=== PATIENT | female | born 1945 | race Caucasian/White ===

== ENCOUNTER 2019-06-22 12:34 | Emergency (ER) | payer MEDICARE, BC, SELFPAY ==
--- NOTE | ~2019-06-22 | XR_ITS ---
EXAMINATION: XR knee RT min 4V EXAM DATE: 06/22/2019 13:09 INDICATION: Initial encounter following injury, with pain of the right knee. TECHNIQUE: Right knee frontal, crosstable lateral, orthogonal oblique projections for interpretation . Additional sunrise projection. FINDINGS: Probable sizable suprapatellar joint body. There is moderate to severe patellofemoral and moderate medial tibiofemoral compartment primary osteoarthritis. There are no acute right knee fractu res or dislocations identified. There is no subcutaneous gas. The soft tissue is unremarkable. Th ere are no radiopaque foreign bodies. IMPRESSION: 1. XR knee RT min 4V exam without acute osseous findings. 2. Moderate to severe osteoarthritis. Reviewed, dictated and finalized at location A. ER DEVELOPMENT DIRECTOR
--- NOTE | ~2019-06-22 | XR_ITS ---
EXAMINATION: XR knee LT min 4V EXAM DATE: 06/22/2019 13:09 INDICATION: Trauma, left knee replacement, pain, initial encounter. TECHNIQUE: Left knee frontal, crosstable lateral, orthogonal oblique projections for interpretation. Additional sunrise projection. FINDINGS: There is total left knee arthroplasty, hardware is intact. No acute fracture line is identi fied. Probable joint bodies within the suprapatellar recess, with small effusion. No acute findings s uspected. IMPRESSION: Intact left knee arthroplasty. Reviewed, dictated and finalized at location A. GER OF ORGANIZATIONAL DEVELOPMENT
--- NOTE | 2019-06-22 12:56 | ED.GENADULT ---
HPI - General Adult General Chief complaint: Extremity Injury, Lower Stated complaint: both knee Time Seen by Provider: 06/22/19 12:56 Source: patient and RN notes reviewed Limitations: no limitations History of Present Illness HPI narrative: This is a 74 years old female presented office for an evaluation of knees injury. States, she tripped over a bump on the group and landed first on her right knee and then left knee, hands and body faceforward on ground. Denies head injury/trauma. Denies chest pain or dyspnea. Reports right knee pain with numbness/tingling sensation around the knee cap. Admits to history of left knee replacement three years ago. She has tried ice and Advil for her symptoms. Related Data Home Medications Medication Instructions Recorded Confirmed amlodipine-benazepril 1 cap BID 06/22/19 06/22/19 omeprazole 40 mg DAILY 06/22/19 06/22/19 Allergies Allergy/AdvReac Type Severity Reaction Status Date / Time No Known Allergies Allergy Verified 06/22/19 12:36 Review of Systems Review of Systems: Narrative: CONSTITUTIONAL: Denies feeling ill CARDIOVASCULAR: Denies chest pain RESPIRATORY: Denies dyspnea GASTROINTESTINAL: Denies nausea, vomiting GENITOURINARY: Denies urinary/bowel problem SKIN: Denies bruise/skin abrasion MUSCULOSKELETAL: Reports bilateral knees pain without obvious bruising NEUROLOGIC: Denies lightheaded or dizziness prior to accident. PMFSH Past Medical History Medical History (Updated 06/22/19 @ 15:27 by ROIB Das) GERD (gastroesophageal reflux disease) HLD (hyperlipidemia) HTN (hypertension) Surgical History Surgical History (Updated 06/22/19 @ 12:57 by ROBI Das) History of left knee replacement Social History Social History Gender identity (if verbalized by the patient): Female Comments At time of signature, I agree with nursing past medical, surgical, social and family history. There is no relevant family history pertinent to the presenting complaint. Exam Narrative: Exam Narrative: GENERAL: This is a well-nourished, well-developed patient, in no apparent distress. CARDIOVASCULAR: Regular rate and rhythm without murmurs, gallops, or rubs. RESPIRATORY: Clear to auscultation. Breath sounds equal bilaterally. No wheezes, rales, or rhonchi. NEURO: awake, alert, and oriented to person, place and time. There were no obvious focal neurologic abnormalities. Steady gait with walker EXTREMITIES: Patient is able to bear weight and ambulate slight pain. Left knee noted old heal surgical scar; no tenderness to palpation/tenderness. The R knee is without obvious asymmetry or deformity when comparing to the L. Patient is able fully extended knee; however there is tenderness over patella with palpation. Nontender over the infrapatellar tendon. Nontender over the medial or lateral joint line, or medial or lateral tibial plateaus. Nontender over the proximal fibular head. NO quadriceps tenderness. Distal motor and neurovascular status intact. Tran Coma Scale Eye Opening: Spontaneous 4 Tran Coma Scale Motor: Obeys Commands 6 Tran Coma Scale Verbal: Oriented 5 Course Vital Signs Vital signs: Vital Signs Temperature 99.0 F 06/22/19 13:05 Pulse Rate 65 06/22/19 13:05 Respiratory Rate 20 06/22/19 13:05 Blood Pressure 150/70 H 06/22/19 13:05 Pulse Oximetry 97 06/22/19 13:05 Temperature 99.0 F 06/22/19 13:05 Pulse Rate 65 06/22/19 13:05 Respiratory Rate 20 06/22/19 13:05 Blood Pressure 150/70 H 06/22/19 13:05 Pulse Oximetry 97 06/22/19 13:05 Medical Decision Making MDM Narrative Medical decision making narrative: Discharge instructions reviewed with patient, as well as provided in writing per nursing staff. The instructions also include specific and strict return/GO TO THE ER as well as f/u information. All questions have been answered, and the patient
[2019-06-22 13:05] VITALS: BP 150/70; PULSE 65; RESP 20; TEMP 37.2; O2SAT 97
== END 2019-06-22 13:35 | disposition home or self-care (01) ==
PROVIDERS: Emergency Provider Nurse Practitioner; PCP Internal Medicine
DX: S89.92XA Unspecified injury of left lower leg, initial encounter (principal); W18.09XA Striking against other object with subsequent fall, initial encounter; S89.91XA Unspecified injury of right lower leg, initial encounter; M17.11 Unilateral primary osteoarthritis, right knee; I10 Essential (primary) hypertension; Z96.642 Presence of left artificial hip joint; K21.9 Gastro-esophageal reflux disease without esophagitis; E78.5 Hyperlipidemia, unspecified
CPT/HCPCS: 73564; 99204; G0463

== ENCOUNTER 2019-09-19 13:33 | Outpatient (CLI) | payer MEDICARE, SELFPAY ==
--- NOTE | 2019-09-19 | ECHO_ITS ---
Patient Info Name: Gina Ortez Age: 74 years : 1945 Gender: Female Ht: 67 in Wt: 270 lbs BSA: 2.47 m2 HR: 50 bpm BP: 146 / 78 mmHg Technical Quality: Fair Exam Date: 09/19/2019 2:06 PM Exam Location: [facility] Patient Status: Outpatient Admit Date: 09/19/2019 Staff Ordering Physician: Corbin, Jaiden Silvestre MD Cotton Grader: Angelika Johnson RDCS Attending Provider: Corbin, Jaiden Silvestre MD Referring Physician: Corbin HOLLIS; Exam Type: CA echo doppler color flow Study Info Indications R01.1 - Cardiac murmur, unspecified Complete two-dimensional, color flow and Doppler transthoracic echocardiogram is performed. Summary 1. Left ventricular chamber dimension is mildly enlarged. 2. Left ventricular systolic function is normal, estimated at 50-55%. 3. There is mild asymmetric septal increased left ventricular wall thickness. 4. Left ventricular septal wall motion is abnormal with septal motion related to bundle branch block. 5. The left ventricular diastolic function is grade I diastolic dysfunction. 6. E/e' 15 is elevated. 7. Global longitudinal strain is abnormal at -12.8%. 8. Left atrial chamber dimension is moderately enlarged. 9. There is moderate aortic valve sclerosis. 10. Discrete calcification of mitral valve papillary muscle noted. 11. There is mild mitral valve regurgitation. 12. There is trace tricuspid valve regurgitation. 13. No pulmonary hypertension, estimated pulmonary arterial systolic pressure is 26 mmHg. Left Ventricle E/e' 15 is elevated. Global longitudinal strain is abnormal at -12.8%. Left ventricular chamber dimension is mildly enlarged. Left ventricular systolic function is normal, estimated at 50-55%. There is mild asymmetric septal increased left ventricular wall thickness. Left ventricular septal wall motion is abnormal with septal motion related to bundle branch block. The left ventricular diastolic function is grade I diastolic dysfunction. Right Ventricle Right ventricular chamber dimension is normal. Right ventricular systolic function is normal. Left Atria Left atrial chamber dimension is moderately enlarged. Right Atria Right atrial chamber dimension is normal. Aortic Valve The aortic valve is trileaflet. There is moderate aortic valve sclerosis. There is no aortic valve stenosis. There is no aortic valve regurgitation. Pulmonic Valve There is no pulmonic regurgitation. Mitral Valve Discrete calcification of mitral valve papillary muscle noted. There is no mitral valve stenosis. There is mild mitral valve regurgitation. Tricuspid Valve There is trace tricuspid valve regurgitation. No pulmonary hypertension, estimated pulmonary arterial systolic pressure is 26 mmHg. Pericardium/Pleural There is no pericardial effusion. Inferior Vena Cava Normal inferior vena cava with >50% collapse upon inspiration consistent with normal right atrial pressure, 5 mmHg. Aorta The aortic root size at the sinus of Valsalva is normal. Left Ventricular Outflow Tract Name Value Normal LVOT 2D LVOT Diameter 1.9 cm LVOT Doppler LVOT Peak Gradient
== END 2019-09-19 13:34 | disposition home or self-care (01) ==
LOC: ANHCARD 13:35
PROVIDERS: PCP Internal Medicine; Visit Provider Internal Medicine
DX: R01.1 Cardiac murmur, unspecified (principal); I51.7 Cardiomegaly; I35.8 Other nonrheumatic aortic valve disorders
CPT/HCPCS: 93306

== ENCOUNTER 2022-05-20 23:00 | Emergency (ER) | payer MEDICARE, SELFPAY ==
--- NOTE | ~2022-05-20 | XR_ITS ---
2 views of the right clavicle CLINICAL HISTORY: Deformity, trauma FINDINGS: Oblique fracture of the proximal clavicle near the fibular head is poorly delineated on rad iograph is compared to separately reported CT scan. There is mild degenerative change at the AC joint . Glenohumeral joint appears intact. Soft tissues are unremarkable. IMPRESSION: Poor delineation of oblique fracture of the proximal clavicle as compared to separately reported CT s can. Reviewed, dictated and finalized at location M. RMATION SYSTEMS PLANNER IMPRESSION: Poor delineation of oblique fracture of the proximal clavicle as compared to se parately reported CT scan.
--- NOTE | ~2022-05-20 | CT_ITS ---
CT Scan of the Chest without Contrast: Clinical Indication: Clavicular deformity Technique: Contiguous sections were acquired throughout the chest without intravenous contrast. Dose reduction technique was used on this scan by utilizing automated exposure control and iterative recon struction technique. The dose-length product (DLP) was 949.79 mGy-cm. Findings: There is no evidence of any significant mediastinal, hilar or axillary lymphadenopathy. Calcified med iastinal and right hilar lymph nodes are noted. Extensive coronary artery calcifications are present. No aortic aneurysm. Small hiatal hernia present. There is no evidence of pleural or pericardial effusion. The lungs demonstrate linear bibasilar scarring or atelectasis. Calcified granulomas noted in the rig ht lung.. Images through the upper abdomen reveal calcified splenic granulomas. There is an oblique, traumatic fracture of the proximal right clavicle. The right clavicular head lester ntains normal alignment at the sternoclavicular joint, but is displaced posteriorly relative to the m ore distal fracture fragment by approximately 2 cm. Mild chronic compression deformity of T9 noted. Impression: Traumatic, oblique, displaced fracture of the proximal right clavicle, as detailed above. Right clavi cular head maintains normal alignment at the sternoclavicular joint. Evidence of prior granulomatous disease. Mild chronic compression deformity of T9. Reviewed, dictated and finalized at location . MAN Impression: Traumatic, oblique, displaced fracture of the proximal right clavicle, as ambrocio led above. Right clavicular head maintains normal alignment at the sternoclavic ular joint. Evidence of prior granulomatous disease. Mild chronic compression deformity of T9.
[2022-05-20 23:04] VITALS: BP 156/77; PULSE 87; RESP 16; TEMP 36.1; O2SAT 100
[2022-05-21 00:36] VITALS: BP 171/80; PULSE 66; RESP 14; O2SAT 97
[2022-05-21 01:00] VITALS: BP 160/71; PULSE 69; RESP 19; O2SAT 100
[2022-05-21] MEDS: MORPHINE SULFATE (*CRX) 4 MG/ML INJ IV PUSH (01:06)
[2022-05-21 03:00] VITALS: BP 146/63; PULSE 66; RESP 19; O2SAT 94
--- NOTE | 2022-05-21 03:07 | ED.FALL ---
HPI - Fall General Chief Complaint: Fall Stated Complaint: shoulder pain, fall Time Seen by Provider: 05/21/22 00:23 History of Present Illness HPI Narrative: Patient is a 76-year-old female who presents ER status post fall. She was removing [place] ornaments from a tree when she lost her balance and fell striking a wall in her chair. She had sudden onset pain in her shoulder. She received Toradol from EMS without improvement. No numbness or tingling to the right upper extremity. She did not strike her head or lose consciousness. She does have swelling and pain to the medial clavicle. She is not on any blood thinners. No difficulty breathing or swallowing. Related Data Home Medications Medication Instructions Recorded Confirmed letrozole 2.5 mg tablet 2.5 mg PO DAILY 05/01/22 05/14/22 Allergies Allergy/AdvReac Type Severity Reaction Status Date / Time No Known Allergies Allergy Verified 05/20/22 23:00 Review of Systems Review of Systems: All systems reviewed & are unremarkable except as noted in HPI and below Musculoskeletal: Musculoskeletal: Denies back pain, Reports arthralgias (Sternoclavicular region) and Reports joint swelling (Medial clavicle) Integumentary/Breasts: Skin/Breast: Denies erythema and Denies rash Neurologic: Denies syncope, Denies headache(s), Denies numbness and Denies weakness PMFSH Past Medical History Medical History (Updated 05/21/22 @ 03:50 by El Luciano MD) Abnormal EKG Breast cancer Esophageal stricture GERD (gastroesophageal reflux disease) HLD (hyperlipidemia) HTN (hypertension) Obesity Surgical History Surgical History History of left knee replacement Family History Family History Father Hypertension Social History Social History (Updated 05/14/22 @ 16:05 by Yuko Edwards MA) Smoking status: Never smoker Alcohol intake: never Substance use: never Lack of Transportation: No Lack of Food: Never True Current Housing: I Have Housing Concerned About Future Housing: No Difficulty Paying Gas/Electric Bills: No Difficulty Paying for Meds: No Currently Unemployed: No Difficulty w/ Childcare or Family Care: No Gender identity (if verbalized by the patient): Female Spiritual care concerns: No Exam Narrative: GENERAL: Well-appearing, well-nourished, and in no acute distress. HEAD: Normocephalic, atraumatic. ENT: Mucous membranes moist. NECK: Supple. CHEST: Clear to auscultation. No respiratory distress. Deformity at the clavicular head no swelling when compared to the left side. Tender to palpation. HEART: Regular rate and rhythm. Normal peripheral pulses. EXTREMITIES: Normal range of motion. No edema. SKIN: Warm, dry, no rash. NEURO: Alert and oriented x3. PSYCH: Normal mood and affect. Course Course Emergency Course: Attempted contacting on-call orthopedic surgery but did not get a return call. Patient was initially placed in a shoulder immobilizer however body habitus is not conducive to the restraint device so she was placed in a sling. She will need to follow-up outpatient for further evaluation. There is no skin tenting patient and is neurologically intact. Vital Signs Vital signs: Vital Signs Temperature 97.0 F L 05/20/22 23:04 Pulse Rate 87 05/20/22 23:04 Respiratory Rate 16 05/20/22 23:04 Blood Pressure 156/77 H 05/20/22 23:04 Pulse Oximetry 100 05/20/22 23:04 Oxygen Delivery Room Air 05/20/22 23:04 Temperature 97.0 F L 05/20/22 23:04 Pulse Rate 66 05/21/22 03:00 Respiratory Rate 19 05/21/22 03:00 Blood Pressure 146/63 H 05/21/22 03:00 Pulse Oximetry 94 05/21/22 03:00 Oxygen Delivery Room Air 05/20/22 23:04 MDM - Fall Imaging Data My impression: X-ray right clavicle: Concern for comminuted fracture of the sternal end. Radiologist's impression
== END 2022-05-21 04:00 | disposition home or self-care (01) ==
PROVIDERS: Emergency Provider Emergency Medicine; PCP Physician Assistant Medical
DX: S42.011A Anterior displaced fracture of sternal end of right clavicle, initial encounter for closed fracture (principal); I10 Essential (primary) hypertension; E78.5 Hyperlipidemia, unspecified; Z85.3 Personal history of malignant neoplasm of breast; W18.39XA Other fall on same level, initial encounter
CPT/HCPCS: 71250; 73000; 96374; 99284; A4565; J2270

== ENCOUNTER 2022-12-22 08:20 | Outpatient (CLI) | payer MEDICARE, SELFPAY ==
--- NOTE | ~2022-12-22 | NM_ITS ---
EXAMINATION: NM giovanni stress w perfusion DATE: 12/22/2022 11:54 INDICATION: Dyspnea on exertion. TECHNIQUE: Rest images were obtained following intravenous administration of 9.5 mCi Tc99m tetrofosmi n (Myoview). The patient was infused intravenously with Lexiscan (regadenoson). Then, 30.5 mCi Tc99m tetrofosmin (Myoview) was administered intravenously, and stress images were obtained. Data was recon structed into short axis and horizontal and vertical long axis SPECT images. Gated SPECT images were also obtained. COMPARISON: None. FINDINGS: There is a small, mild, fixed perfusion defect involving mid anterior segments of left vent ricle, consistent with infarct. No reversible component to suggest ischemia.. There is no segmental wall motion abnormality. Left ventricular ejection fraction measures 43%. IMPRESSION: 1. Small area of mild infarct involving mid anterior segment of left ventricle. 2. Decreased left ventricular ejection fraction measuring 43%. Reviewed, dictated and finalized at location A.
--- NOTE | 2022-12-22 08:44 | EST_ITS ---
Patient Info Name: Gina Ortez Age: 77 years : 1945 Gender: Female Ht: 67 in Wt: 270 lbs BSA: 2.47 m2 Exam Date: 12/22/2022 10:35 AM Exam Location: [facility] Stress Patient Status: Outpatient Admit Date: 12/22/2022 Staff Ordering Physician: Andriy Mckinley DO Attending Provider: Andriy Mckinley DO Exercise Technologist: Angelika Johnson RDCS Exercise Physician: Andriy Mckinley DO Exam Type: CA stress giovanni w NM Study Info Indications R06.09 - Other forms of dyspnea A regadenoson stress test was performed. Summary 1. 1. Inconclusive lexiscan stress test for ischemic ST changes by ECG criteria due to baseline LBBB. 2. 2. Stable hemodynamics throughout the test. 3. 3. Nuclear scan to follow and will be reported separately. Please correlate with it. 4. 4. Patient informed of the above results. Protocol: Lexiscan Stress ECG Details Stage: REST Duration (min): 1 min : 16 sec HR (bpm): 68 SBP (mmHg): 125 DBP (mmHg): 94 Stage: REST Duration (min): 9 min : 52 sec HR (bpm): 74 SBP (mmHg): 125 DBP (mmHg): 94 Stage: STAGE 1 Duration (min): 0 min : 59 sec HR (bpm): 90 SBP (mmHg): 125 DBP (mmHg): 94 Stage: RECOVERY Duration (min): 1 min : 0 sec HR (bpm): 101 SBP (mmHg): 151 DBP (mmHg): 80 Stage: RECOVERY Duration (min): 2 min : 0 sec HR (bpm): 83 SBP (mmHg): 151 DBP (mmHg): 80 Stage: RECOVERY Duration (min): 3 min : 0 sec HR (bpm): 79 SBP (mmHg): 128 DBP (mmHg): 82 Stage: RECOVERY Duration (min): 3 min : 2 sec HR (bpm): 77 SBP (mmHg): 128 DBP (mmHg): 82 Rest HR: 74 bpm Peak HR: 111 bpm Rest Sys BP: 125 mmHg Peak Sys BP: 151 mmHg Max Pred HR: 144 bpm % Max Pred HR: 77 % Target HR: 122 bpm Max RPP: 16,761 bpm*mmHg Termination Reason: Completed protocol Cardiac Symptoms: Shortness of breath Total Time: 1 min : 0 sec Rest Gibbons BP: 94 mmHg Peak Gibbons BP: 80 mmHg Total Dose: 0.4 mg Resting ECG Atrial fibrillation, LBBB. Stress ECG No ST changes. Arrhythmias No other arrhythmias. Report Signatures
--- NOTE | 2022-12-22 08:44 | ECHO_ITS ---
Patient Info Name: Gina Ortez Age: 77 years : 1945 Gender: Female Ht: 67 in Wt: 271 lbs BSA: 2.47 m2 HR: 72 bpm BP: 143 / 103 mmHg Heart Rhythm: Atrial Fibrillation Technical Quality: Fair Exam Date: 12/22/2022 8:57 AM Exam Location: [facility] Patient Status: Outpatient Admit Date: 12/22/2022 Staff Ordering Physician: Andriy Mckinley DO Practice Or Student Teacher: Janett Glynn RDCS Attending Provider: Andriy Mckinley DO Referring Physician: Elías COX; Exam Type: CA echo doppler color flow Study Info Indications R06.09 - Other forms of dyspnea Complete two-dimensional, color flow and Doppler transthoracic echocardiogram is performed. Summary 1. Complete two-dimensional, color flow and Doppler transthoracic echocardiogram is performed. 2. Left ventricular chamber dimension is mildly enlarged. 3. Left ventricular systolic function is moderately reduced, estimated at 35-40%. 4. Left ventricular septal wall motion is abnormal with septal motion related to bundle branch block. 5. The left ventricular diastolic function is abnormal. 6. E/e' 13 is mildly elevated. 7. Atrial fibrillation. 8. Left atrial chamber dimension is severely enlarged. 9. There is mild aortic valve sclerosis. 10. There is moderate to severe mitral valve regurgitation. 11. There is mild tricuspid valve regurgitation. 12. No pulmonary hypertension, estimated pulmonary arterial systolic pressure is 32 mmHg. Left Ventricle E/e' 13 is mildly elevated. Atrial fibrillation. Left ventricular chamber dimension is mildly enlarged. Left ventricular systolic function is moderately reduced, estimated at 35-40%. Left ventricular septal wall motion is abnormal with septal motion related to bundle branch block. The left ventricular diastolic function is abnormal. Right Ventricle Right ventricular chamber dimension is normal. Right ventricular systolic function is normal. Left Atria Left atrial chamber dimension is severely enlarged. Right Atria Right atrial chamber dimension is normal. Aortic Valve The aortic valve is trileaflet. There is mild aortic valve sclerosis. There is no aortic valve stenosis. There is no aortic valve regurgitation. Pulmonic Valve There is no pulmonic regurgitation. Mitral Valve There is no mitral valve stenosis. There is moderate to severe mitral valve regurgitation. Tricuspid Valve There is mild tricuspid valve regurgitation. No pulmonary hypertension, estimated pulmonary arterial systolic pressure is 32 mmHg. Pericardium/Pleural There is no pericardial effusion. Inferior Vena Cava Normal inferior vena cava with >50% collapse upon inspiration consistent with normal right atrial pressure, 5 mmHg. Aorta The aortic root size at the sinus of Valsalva is normal. Left Ventricular Outflow Tract Name Value Normal LVOT 2D LVOT Diameter 2.1 cm LVOT Doppler LVOT Peak Gradient 5 mmHg LVOT Mean Gradient 3 mmHg LVOT VTI 22 cm LVOT VTI/AV VTI Ratio 0.6 LVOT Stroke Volume 75 ml LVOT CO 15.7 l/min
== END 2022-12-22 08:21 | disposition home or self-care (01) ==
LOC: ANHCARD 08:21
PROVIDERS: PCP Physician Assistant Medical; Visit Provider Internal Medicine Cardiovascular Disease
DX: I48.91 Unspecified atrial fibrillation (principal); R06.09 Other forms of dyspnea; I36.1 Nonrheumatic tricuspid (valve) insufficiency; I34.0 Nonrheumatic mitral (valve) insufficiency; I35.1 Nonrheumatic aortic (valve) insufficiency
CPT/HCPCS: 78452; 93017; 93306; A9502; J2785

== ENCOUNTER 2023-03-21 09:25 | Outpatient (CLI) | payer MEDICARE, SELFPAY ==
--- NOTE | 2023-03-21 09:56 | ECHO_ITS ---
Patient Info Name: Gina Ortez Age: 77 years : 1945 Gender: Female Ht: 67 in Wt: 254 lbs BSA: 2.39 m2 HR: 71 bpm BP: 160 / 91 mmHg Heart Rhythm: Sinus Rhythm Technical Quality: Fair Exam Date: 03/21/2023 10:02 AM Exam Location: Echo Lab Patient Status: Outpatient Admit Date: 03/21/2023 Staff Ordering Physician: Andriy Mckinley DO Aquatic Instructor: Bruce Clark RDCS Attending Provider: Andriy Mckinley DO Referring Physician: Elías COX; Exam Type: CA echo doppler color flow Study Info Indications - other ill defined heart disease Complete two-dimensional, color flow and Doppler transthoracic echocardiogram is performed. Summary 1. Complete two-dimensional, color flow and Doppler transthoracic echocardiogram is performed. 2. Left ventricular chamber dimension is mildly enlarged. 3. Left ventricular systolic function is moderately globally reduced, estimated at 40-45%. 4. There is mild concentric increased left ventricular wall thickness. 5. Left ventricular septal wall motion is abnormal with septal motion related to bundle branch block. 6. The left ventricular diastolic function is grade III diastolic dysfunction. 7. E/e' 22 is elevated. 8. Left atrial chamber dimension is mildly enlarged. 9. There is moderate aortic valve sclerosis. 10. There is mild aortic valve stenosis with a peak velocity of 224 cm/s, mean gradient of 7 mmHg, and aortic valve area of 1.5 cm2. 11. There is mild to moderate mitral valve regurgitation. 12. There is mild tricuspid valve regurgitation. 13. No pulmonary hypertension, estimated pulmonary arterial systolic pressure is 30 mmHg. Left Ventricle E/e' 22 is elevated. Left ventricular chamber dimension is mildly enlarged. Left ventricular systolic function is moderately globally reduced, estimated at 40-45%. There is mild concentric increased left ventricular wall thickness. Left ventricular septal wall motion is abnormal with septal motion related to bundle branch block. The left ventricular diastolic function is grade III diastolic dysfunction. Right Ventricle Right ventricular systolic function is normal and with normal TAPSE 2.5 cm. Right ventricular chamber dimension is normal. Left Atria Left atrial chamber dimension is mildly enlarged. Right Atria Right atrial chamber dimension is normal. Aortic Valve The aortic valve is trileaflet. There is moderate aortic valve sclerosis. There is mild aortic valve stenosis with a peak velocity of 224 cm/s, mean gradient of 7 mmHg, and aortic valve area of 1.5 cm2. There is no aortic valve regurgitation. Pulmonic Valve There is no pulmonic regurgitation. Mitral Valve There is no mitral valve stenosis. There is mild to moderate mitral valve regurgitation. Tricuspid Valve There is mild tricuspid valve regurgitation. No pulmonary hypertension, estimated pulmonary arterial systolic pressure is 30 mmHg. Pericardium/Pleural There is no pericardial effusion. Inferior Vena Cava Normal inferior vena cava with >50% collapse upon inspiration consistent with normal right atrial pressure, 5 mmHg. Aorta The aortic root size at the sinus of Valsalva is normal. Left Ventricular Outflow Tract Name Value Normal LVOT 2D LVOT Diameter 2.1 cm LVOT Doppler
== END 2023-03-21 09:26 | disposition home or self-care (01) ==
LOC: ANHCARD 09:26
PROVIDERS: PCP Physician Assistant Medical; Visit Provider Internal Medicine Cardiovascular Disease
DX: I08.3 Combined rheumatic disorders of mitral, aortic and tricuspid valves (principal)
CPT/HCPCS: 93306

== ENCOUNTER 2023-06-09 11:01 | Inpatient (IN) | payer MEDICARE, SELFPAY ==
[2023-06-09] VITALS (17 sets, daily range): BP systolic 109–142; BP diastolic 49–76; PULSE 55–72; RESP 13–27; TEMP 36.4–36.5; O2SAT 95–100
--- NOTE | ~2023-06-09 | XR_ITS ---
Portable chest x-ray Comparison: 10/24/2022 Clinical History: PICC line placement Findings: Left-sided PICC line is in satisfactory position. Lungs are clear. Cardiomediastinal silh ouette is stable. Bones and soft tissues are unremarkable. Impression: Left-sided PICC line in satisfactory position. Reviewed, dictated and finalized at [facility]. TECHNICIAN Impression: Left-sided PICC line in satisfactory position.
--- NOTE | ~2023-06-09 | CT_ITS ---
EXAMINATION: CT LE RT w con DATE: 06/12/2023 17:08 INDICATION: Refractory soft tissue infection. TECHNIQUE: Computed tomography (CT) of the right lower limb was performed with 100 mL Omnipaque 350 i ntravenous contrast. Automated exposure control and iterative reconstruction technique were employed. The dose-length product was 1245.49 mGy-cm. COMPARISON: Right knee radiographs 07/23/2022 FINDINGS: Bone alignment is normal. No fracture. There is severe tricompartmental osteoarthritis of t he knee. There is a small knee joint effusion with loose bodies. There is severe midfoot osteoarthrit is. Subcutaneous edema is noted. There are widespread arterial calcifications. IMPRESSION: 1. Polyarticular osteoarthritis. 2. Small knee joint effusion with loose bodies. Reviewed, dictated and finalized at location E. [employer]
--- NOTE | ~2023-06-09 | CT_ITS ---
EXAMINATION: CT LE LT w con DATE: 06/12/2023 17:07 INDICATION: Refractory soft tissue infection. TECHNIQUE: Computed tomography (CT) of the left lower limb was performed with 100 mL Omnipaque 350 in travenous contrast. Automated exposure control and iterative reconstruction technique were employed. The dose-length product was 1245.49 mGy-cm. COMPARISON: Left knee radiographs 05/23/2022, 06/22/19 FINDINGS: There is a total left knee arthroplasty with patellar resurfacing. No fracture. The patella r component demonstrates fragmentation and lucencies. There are loose bodies in suprapatellar bursa. There is a small knee joint effusion. There is severe midfoot osteoarthritis. There are widespread ar terial calcifications. IMPRESSION: 1. 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 2. Small knee joint effusion with loose bodies. Reviewed, dictated and finalized at location E. INSPECTOR
--- NOTE | 2023-06-09 12:51 | ED.EXTPRO ---
HPI - Extremity Problem General Chief complaint: Extremity Problem,Nontraumatic Stated complaint: Cellulitits Time Seen by Provider: 06/09/23 12:38 History of Present Illness HPI Narrative: Patient is a 78-year-old female with a history of AFib on Eliquis, breast cancer, hypertension presenting with cellulitis. Patient states that she has had cellulitis affecting both of her lower legs for several weeks. She has been seen by her PCP multiple times to has treated her with several different p.o. antibiotics as well as IM Rocephin. Unfortunately, the cellulitis has continued so she was advised to come to the ER for IV antibiotics. States that for the pain comes and goes. States that her lower legs are red and warm. No fevers but does complain of intermittent chills. No other systemic symptoms. Related Data Home Medications Medication Instructions Recorded Confirmed letrozole 2.5 mg tablet 2.5 mg PO DAILY 05/01/22 06/09/23 calcium carbonate 600 mg calcium 600 mg PO DAILY 07/21/22 06/09/23 (1,500 mg) tablet (Calcium) cholecalciferol (vitamin D3) 125 125 mcg PO DAILY 07/21/22 06/09/23 mcg (5,000 unit) capsule dofetilide 250 mcg capsule 250 mcg PO Q12H 04/20/23 06/09/23 furosemide 40 mg tablet 40 mg PO QAM 04/20/23 06/09/23 apixaban 5 mg tablet (Eliquis) 5 mg PO BID 06/09/23 06/09/23 carvedilol 3.125 mg tablet 3.125 mg PO BID 06/09/23 06/09/23 omeprazole 40 mg capsule,delayed 40 mg PO DAILY 06/09/23 06/09/23 release rosuvastatin 10 mg tablet 10 mg PO HS 06/09/23 06/09/23 Allergies Allergy/AdvReac Type Severity Reaction Status Date / Time No Known Allergies Allergy Verified 06/08/23 10:32 Review of Systems Review of Systems: All systems reviewed & are unremarkable except as noted in HPI and below PMFSH Past Medical History Medical History Abnormal EKG Breast cancer Esophageal stricture GERD (gastroesophageal reflux disease) History of radiation therapy HLD (hyperlipidemia) HTN (hypertension) Insomnia Murmur, cardiac Obesity PANDA on CPAP Surgical History Surgical History H/O lumpectomy (~2021) History of left knee replacement (~06/2016) Family History Family History Father Hypertension Lung cancer Social History Social History Smoking status: Never smoker Alcohol intake: never Substance use: never Do You Feel Safe in your Home?: Yes Lack of Transportation: No Lack of Food: Never True Current Housing: I Have Housing Concerned About Future Housing: No Difficulty Paying Gas/Electric Bills: No Difficulty Paying for Meds: No Currently Unemployed: No Education: Trade/Vocational Certificate Difficulty w/ Childcare or Family Care: No Occupation/Education: retired Gender identity (if verbalized by the patient): Female Spiritual care concerns: No Exam Narrative: GENERAL: Nontoxic, no acute distress, pleasant and cooperative HEAD: Normocephalic, atraumatic. EYES: PERRLA and EOMI. ENT: Mucous membranes moist. NECK: Supple. CHEST: Clear to auscultation. No respiratory distress. HEART: Regular rate and rhythm ABDOMEN: Soft, nontender, nondistended EXTREMITIES: Normal range of motion. No edema. SKIN: Warm, dry, lower legs are erythematous, warm to the touch, slightly tender; no drainage or areas of fluctuance; DP pulses 2+ bilaterally NEURO: No focal deficits. Alert and oriented x3. PSYCH: Normal mood and affect. Course Vital Signs Vital signs: Vital Signs Temperature 97.7 F 06/09/23 11:02 Pulse Rate 70 06/09/23 11:02 Respiratory Rate 18 06/09/23 11:02 Blood Pressure 109/69 06/09/23 11:02 Pulse Oximetry 98 06/09/23 11:02 Oxygen Delivery Room Air 06/09/23 11:02 Temperature 97.8 F 06/14/23
[2023-06-09 13:05] LABS: Basophils Absolute Auto 0.1 K/mm3 (0.0-0.1); Basophils Percent Auto 0.6 % (0.2-1.2); Eosinophils Absolute Auto 0.2 K/mm3 (0-0.3); Eosinophils Percent Auto 1.9 % (0-4.4); Hemoglobin 13.6 g/dL (12.0-15.0); Immature Granulocyte Absolute 0.05 K/mm3 (0.00-0.031); Immature Granulocyte Percent A 0.6 % (0-0.5); Lymphocytes Absolute Auto 0.78 K/mm3 (0.9-3.2); Lymphocytes Percent Auto 9.2 % (18.3-44.2); Mean Corpuscular HGB Conc 32.4 g/dl (32-36); Mean Corpuscular Volume 95.7 fl (80-100); Mean Platelet Volume 9.5 fl (7.4-10.4); Monocytes Absolute Auto 0.7 K/mm3 (0.1-0.6); Neutrophils Absolute Auto 6.8 K/mm3 (1.3-6.7); Neutrophils Percent Auto 79.7 % (45.5-73.1); Platelet Count Result 285 k/mm3 (150-375); Red Blood Count 4.39 M/mm3 (4.2-5.4); Red Cell Distribution Width 13.8 % (11.5-14.5); White Blood Count 8.5 K/mm3 (4.5-10.0)
[2023-06-09 13:17] LABS: Alanine Aminotransferase 25 U/L (6-35); Alkaline Phosphatase 68 U/L (38-126); Anion Gap 7 mmol/L (8-16); Aspartate Amino Transferase 30 U/L (14-36); Bilirubin,Total 0.7 mg/dL (0.2-1.3); Blood Urea Nitrogen 29 mg/dL (7-17); CRP < 0.5 mg/dL (<1.0); Calcium 9.7 mg/dL (8.4-10.2); Carbon Dioxide 27 mmol/L (22-30); Chloride 105 mmol/L (98-107); Estimated CRCL calculation 58 ml/min; Estimated Glomerular Filt Rate > 60; Glucose 119 mg/dL (65-110); Potassium 3.7 mmol/L (3.4-5.0); Sodium 139 mmol/L (137-145)
[2023-06-09] MEDS: CEFEPIME 1 GM/NS 50 ML 1 GM/50 ML BAG IVPB (13:44)
[2023-06-09 13:56] LABS: Erythrocyte Sedimentation Rate 21 mm/hr (0-20)
[2023-06-09] MEDS: VANCOMYCIN 1,500 MG/NS 500 ML 1,500 MG/500 ML BAG 250 MG IVPB (14:09)
--- NOTE | 2023-06-09 20:36 | PM.IMHP ---
H&P: HPI History of Present Illness Date/Time: 06/09/23 20:36 Chief Complaint: CELLULITIS Narrative: THIS IS A 78-YEAR-OLD FEMALE WITH PAST MEDICAL HISTORY SIGNIFICANT FOR ATRIAL FIBRILLATION, RATE CONTROLLED ANTICOAGULATED, TYPE DIABETES MELLITUS, CHRONIC VENOUS INSUFFICIENCY, CONGESTIVE HEART FAILURE, GASTROESOPHAGEAL REFLUX DISEASE, HYPERTENSION, OBSTRUCTIVE SLEEP APNEA ON CPAP. PATIENT PRESENTS TO THE EMERGENCY ROOM DUE TO LOWER EXTREMITY REDNESS SWELLING AND TENDERNESS FOR THE LAST SEVERAL DAYS OR SO PATIENT HAD COMPLETED A COURSE OF CEPHALEXIN IN THE OUTPATIENT SETTING. PATIENT IS BEEN ADMITTED FOR FURTHER EVALUATION MANAGEMENT AND TREATMENT. Review of Systems Review of Systems: LOWER EXTREMITY REDNESS SWELLING TENDERNESS Constitutional: Constitutional: Denies chills, Denies fever(s), Denies malaise and Denies night sweats Eyes: Eyes: Denies change in vision ENT: Denies dysphagia and Denies odynophagia Cardiovascular: Cardiovascular: Denies chest pain, Denies radiating jaw, neck or arm pain and Denies palpitations Respiratory: Respiratory: Denies cough and Denies dyspnea Gastrointestinal: Gastrointestinal: Denies abdominal pain, Denies dyspepsia, Denies heartburn, Denies diarrhea, Denies nausea and Denies vomiting Genitourinary: Genitourinary: Denies dysuria Musculoskeletal: Musculoskeletal: Denies myalgias Integumentary/Breasts: Skin/Breast: Reports erythema and Reports skin swelling Neurologic: Denies focal weakness and Denies Sensory deficit (Neuro) Psychiatric: Psychiatric: Reports no additional psychiatric complaints and Reports as per HPI Endocrine: Endocrine: Denies cold intolerance, Denies flushing, Denies heat intolerance, Denies polyphagia, Denies polydipsia and Denies palpitations Hematologic/Lymphatic: Hematologic/Lymphatic: Reports no additional hematologic/lymphatic complaints and Reports as per HPI Allergic/Immunologic: Allergic/Immunologic: Reports no additional allergic/immunologic complaints and Reports as per HPI PMF Past Medical History Medical History Abnormal EKG Breast cancer Esophageal stricture GERD (gastroesophageal reflux disease) History of radiation therapy HLD (hyperlipidemia) HTN (hypertension) Insomnia Murmur, cardiac Obesity PANDA on CPAP Surgical History Surgical History H/O lumpectomy (~2021) History of left knee replacement (~06/2016) Family History Family History Father Hypertension Lung cancer Social History Social History Smoking status: Never smoker Alcohol intake: never Substance use: never Do You Feel Safe in your Home?: Yes Lack of Transportation: No Lack of Food: Never True Current Housing: I Have Housing Concerned About Future Housing: No Difficulty Paying Gas/Electric Bills: No Difficulty Paying for Meds: No Currently Unemployed: No Education: Trade/Vocational Certificate Difficulty w/ Childcare or Family Care: No Occupation/Education: retired Gender identity (if verbalized by the patient): Female Spiritual care concerns: No Meds Home Medications and Allergies Home Medications Medication Instructions Recorded Confirmed Type letrozole 2.5 mg tablet 2.5 mg PO DAILY 05/01/22 06/09/23 History calcium carbonate 600 mg calcium 600 mg PO DAILY 07/21/22 06/09/23 History (1,500 mg) tablet (Calcium) cholecalciferol (vitamin D3) 125 125 mcg PO DAILY 07/21/22 06/09/23 History mcg (5,000 unit) capsule sacubitril 49 mg-valsartan 51 mg 1 tablet PO BID #60 tabs 12/22/22 06/09/23 Rx tablet (Entresto) dapagliflozin propanediol 10 mg 10 mg PO DAILY #90 tabs 01/01/23 06/09/23 Rx tablet (Farxiga) spironolactone 25 mg tablet 25 mg PO DAILY #90 tabs 01/01/23 06/09/23 Rx do
[2023-06-09] MEDS: SACUBITRIL/VALSARTAN 49-51 MG TABLET 1 TABLET PO (21:53)
[2023-06-09] MEDS: MICONAZOLE NITRATE 2% CREAM 30 GM TUBE 1 APPLIC TOPICAL (21:54)
[2023-06-09] MEDS: carvediloL 3.125 MG TABLET PO (21:54)
[2023-06-09] MEDS: APIXABAN 5 MG TABLET PO (21:54)
[2023-06-09] MEDS: ROSUVASTATIN 10 MG TABLET PO (21:54)
[2023-06-10 05:37] LABS: Estimated CRCL calculation 65 ml/min; Estimated Glomerular Filt Rate > 60
[2023-06-10 06:00] VITALS: BP 121/47; PULSE 55; RESP 18; TEMP 36.4; O2SAT 99
[2023-06-10 08:12] VITALS: O2SAT 93
[2023-06-10] MEDS: VANCOMYCIN 1,500 MG/NS 500 ML 1,500 MG/500 ML BAG 250 MG IVPB (08:33)
[2023-06-10 08:34] VITALS: PULSE 75
[2023-06-10] MEDS: APIXABAN 5 MG TABLET PO ×2 (08:34→21:54)
[2023-06-10] MEDS: carvediloL 3.125 MG TABLET PO ×2 (08:34→21:54)
[2023-06-10] MEDS: CHOLECALCIFEROL 1,000 UNITS TABLET 5000 UNITS PO (08:34)
[2023-06-10] MEDS: PANTOPRAZOLE 40 MG TABLET PO ×2 (08:34→21:54)
[2023-06-10] MEDS: CALCIUM CARBONATE (OSCAL) 500 MG TABLET PO (08:34)
[2023-06-10] MEDS: SACUBITRIL/VALSARTAN 49-51 MG TABLET 1 TABLET PO ×2 (08:38→21:54)
[2023-06-10] MEDS: SPIRONOLACTONE 25 MG TABLET PO (08:39)
[2023-06-10] MEDS: MICONAZOLE NITRATE 2% CREAM 30 GM TUBE 1 APPLIC TOPICAL ×2 (08:39→21:55)
[2023-06-10] MEDS: LETROZOLE (*CHEMO) 2.5 MG TABLET PO (10:43)
--- NOTE | 2023-06-10 11:42 | PM.IMPN ---
Progress Note: A&P Assessment and Plan (1) Cellulitis of both lower extremities: Code(s): L03.115 - Cellulitis of right lower limb; L03.116 - Cellulitis of left lower limb Status: Acute Plan A pleasant 78-year-old white female with past medical history combined diastolic systolic heart failure, atrial fibrillation on Eliquis, [id number] diabetes mellitus, chronic venous insufficiency, GERD, HTN, PANDA on CPAP, obesity. She presents with complaints of lower extremity redness swelling and tenderness over several days. She was receiving cephalexin in the outpatient setting but it did not improve her symptoms. Admitted on 06/09/2023 #Bilateral lower extremity cellulitis -patient reports that is not improved compared to 06/09/2023. On exam it is not tender or warm but the patient is adamant it pulse states and becomes very tender and hot. She does not appear to have sepsis or be toxic. Continue to monitor this and continue vancomycin for now while considering that this could be related to her CHF. Pending blood cultures #Combined diastolic systolic heart failure -appears compensated. -continue home medications. Coreg, Jardiance, Entresto, spironolactone #Suz-vxwugjy-vthqbthau diabetes mellitus -continue Accu-Cheks and insulin sliding scale #Hypertension -controlled. Continue home medications #Paroxysmal AFib on Eliquis -currently normal sinus rhythm. Continue Eliquis FEN: Saline lock IV. Heart healthy diabetic diet. GI prophylaxis: Not indicated DVT prophylaxis: Continue home Eliquis Lines: Peripheral IV Code Status: Full code Dispo: Stable Subjective Date/time seen: 06/10/23 11:42 Interval history: No acute overnight events. Patient thinks her lower extremity swelling is worse. She denies fever or chills Review of Systems Review of Systems: All systems reviewed & are unremarkable except as noted in HPI and below (Subjective) Exam Const: General: comfortable and no acute distress Other: A&O x3. Obese. Eyes: Pupils: Equal, round and reactive pupils present Neck: Neck: supple Resp: Effort & Inspection: normal respiratory effort Auscultation: clear to auscultation bilaterally, no crackles, no rales and no rhonchi Cardio: Rate: regular rate Rhythm: regular rhythm GI: GI Palp: Yes Soft to palpation and No Tenderness to palpation present (GI) Extrem: General: edema (Mild. Erythema. No tenderness to palpation. No lesions) Objective Data Vital Signs Vital Signs: Vital Signs - 24 hr 06/09/23 14:09 06/09/23 13:17 06/09/23 13:18 Temperature Pulse Rate 65 72 55 L Respiratory Rate 16 14 13 Blood Pressure 139/67 140/76 Pulse Oximetry 96 100 100 Oxygen Delivery 06/09/23 13:30 06/09/23 13:49 06/09/23 14:20 Temperature Pulse Rate 57 L 60 61 Respiratory Rate 16 16 16 Blood Pressure Pulse Oximetry 99 100 95 Oxygen Delivery 06/09/23 14:30 06/09/23 14:31 06/09/23 14:56 Temperature Pulse Rate 59 L 62 61 Respiratory Rate 15 15 20 Blood Pressure 125/49 L Pulse Oximetry 97 98 100 Oxygen Delivery 06/09/23 15:13 06/09/23 15:15 06/09/23 15:30 Temperature Pulse Rate 63 64 61 Respiratory Rate 27 H 18 16 Blood Pressure 142/64 H Pulse Oximetry 100 99 99 Oxygen Delivery 06/09/23 15:31 06/09/23 19:24 06/09/23 19:52 Temperature Pulse Rate 64 Respiratory Rate 19 Blood Pressure Pulse Oximetry 98 Oxygen Delivery Room Air Room Air 06/09/23 21:42 06/09/23 21:54 06/09/23 22:45 Temperature 97.6 F Pulse Rate 65 65 63 Respiratory Rate 18 Blood Pressure 113/60 Pulse Oximetry 97 97 Oxygen Delivery Room Air 06/10/23 02:47 06/10/23 06:00 06/10/23 08:12 Temperature 97.6 F Pulse Rate 55 L Respiratory Rate 18 Blood Pressure 121/47 L Pulse Oximetry 99 93 Oxygen Delivery Room Air Room Air 06/10/23 08:34 06/10/23 08:00 Temperature Pulse Rate 75 Respiratory Rate Blood Pres
[2023-06-10 12:58] LABS: Glucose Point of Care 119 mg/dl (65-105)
[2023-06-10 14:00] VITALS: BP 124/62; PULSE 64; RESP 18; TEMP 36.4; O2SAT 98
[2023-06-10 17:26] LABS: Glucose Point of Care 122 mg/dl (65-105)
[2023-06-10 20:13] VITALS: BP 154/99; PULSE 64; RESP 18; TEMP 36.4; O2SAT 98
[2023-06-10 21:39] LABS: Glucose Point of Care 134 mg/dl (65-105)
[2023-06-10 21:54] VITALS: PULSE 64
[2023-06-10] MEDS: ROSUVASTATIN 10 MG TABLET PO (21:54)
[2023-06-11] VITALS (8 sets, daily range): BP systolic 119–145; BP diastolic 43–85; PULSE 58–92; RESP 16–18; TEMP 36.4–36.7; O2SAT 98–100
[2023-06-11] MEDS: VANCOMYCIN 1,500 MG/NS 500 ML 1,500 MG/500 ML BAG 150 MG IVPB (01:50)
[2023-06-11 06:04] LABS: Basophils Percent Auto 0.6 % (0.2-1.2); Eosinophils Absolute Auto 0.3 K/mm3 (0-0.3); Eosinophils Percent Auto 3.9 % (0-4.4); Hematocrit 35.2 % (37.0-47.0); Hemoglobin 11.4 g/dL (12.0-15.0); Immature Granulocyte Absolute 0.03 K/mm3 (0.00-0.031); Immature Granulocyte Percent A 0.5 % (0-0.5); Lymphocytes Absolute Auto 0.78 K/mm3 (0.9-3.2); Lymphocytes Percent Auto 12.3 % (18.3-44.2); Mean Corpuscular HGB Conc 32.4 g/dl (32-36); Mean Corpuscular Hemoglobin 31.1 pg (26-34); Mean Corpuscular Volume 96.2 fl (80-100); Mean Platelet Volume 9.4 fl (7.4-10.4); Monocytes Absolute Auto 0.7 K/mm3 (0.1-0.6); Monocytes Percent Auto 11.7 % (2.6-8.5); Neutrophils Absolute Auto 4.5 K/mm3 (1.3-6.7); Platelet Count Result 244 k/mm3 (150-375); Red Blood Count 3.66 M/mm3 (4.2-5.4); Red Cell Distribution Width 13.8 % (11.5-14.5); White Blood Count 6.3 K/mm3 (4.5-10.0)
[2023-06-11 06:21] LABS: Anion Gap 4 mmol/L (8-16); Blood Urea Nitrogen 23 mg/dL (7-17); Calcium 9.1 mg/dL (8.4-10.2); Carbon Dioxide 25 mmol/L (22-30); Chloride 110 mmol/L (98-107); Estimated CRCL calculation 53 ml/min; Estimated Glomerular Filt Rate 54; Glucose 109 mg/dL (65-110); Magnesium 2.3 mg/dL (1.6-2.3); Potassium 3.7 mmol/L (3.4-5.0); Sodium 139 mmol/L (137-145)
[2023-06-11 08:12] LABS: Glucose Point of Care 107 mg/dl (65-105)
[2023-06-11] MEDS: LETROZOLE (*CHEMO) 2.5 MG TABLET PO (09:20)
[2023-06-11] MEDS: SPIRONOLACTONE 25 MG TABLET PO (09:20)
[2023-06-11] MEDS: APIXABAN 5 MG TABLET PO ×2 (09:20→22:02)
[2023-06-11] MEDS: CALCIUM CARBONATE (OSCAL) 500 MG TABLET PO (09:20)
[2023-06-11] MEDS: SACUBITRIL/VALSARTAN 49-51 MG TABLET 1 TABLET PO ×2 (09:20→22:02)
[2023-06-11] MEDS: PANTOPRAZOLE 40 MG TABLET PO ×2 (09:20→22:02)
[2023-06-11] MEDS: MICONAZOLE NITRATE 2% CREAM 30 GM TUBE 1 APPLIC TOPICAL ×2 (09:20→22:39)
[2023-06-11] MEDS: carvediloL 3.125 MG TABLET PO ×2 (09:20→22:02)
[2023-06-11] MEDS: CHOLECALCIFEROL 1,000 UNITS TABLET 5000 UNITS PO (09:20)
--- NOTE | 2023-06-11 10:32 | PM.IMPN ---
Progress Note: A&P Assessment and Plan (1) Cellulitis of both lower extremities: Code(s): L03.115 - Cellulitis of right lower limb; L03.116 - Cellulitis of left lower limb Status: Acute Plan A pleasant 78-year-old white female with past medical history combined diastolic systolic heart failure, atrial fibrillation on Eliquis, [id number] diabetes mellitus, chronic venous insufficiency, GERD, HTN, PANDA on CPAP, obesity. She presents with complaints of lower extremity redness swelling and tenderness over several days. She was receiving cephalexin in the outpatient setting but it did not improve her symptoms. Admitted on 06/09/2023 #Bilateral lower extremity cellulitis -patient reports that is not improved compared to 06/09/2023. On exam it is not tender or warm but the patient is adamant it pulse states and becomes very tender and hot. She does not appear to have sepsis or be toxic. Continue to monitor this and continue vancomycin for now while considering that this could be related to her CHF. Pending blood cultures -June 11: The patient does not have many classic characteristics of cellulitis. As well the rashes are bilateral and argue against cellulitis. We can continue vancomycin for now. Blood cultures negative to date. She had the 1st episode many years ago after a pedicure. The rash is resolved after use of a cream and she did not receive antibiotics. She reports this is identical. She is nontoxic nonseptic. Start betamethasone clotrimazole cream and re-evaluate. She does have some tinea pedis. #Combined diastolic systolic heart failure -appears compensated. -continue home medications. Coreg, Jardiance, Entresto, spironolactone #Pqr-[id number]-qtfdipyaw diabetes mellitus -continue Accu-Cheks and insulin sliding scale #Hypertension -controlled. Continue home medications #Paroxysmal AFib on Eliquis -currently normal sinus rhythm. Continue Eliquis FEN: Saline lock IV. Heart healthy diabetic diet. GI prophylaxis: Not indicated DVT prophylaxis: Continue home Eliquis Lines: Peripheral IV Code Status: Full code Dispo: Stable Subjective Date/time seen: 06/11/23 10:32 Interval history: No acute overnight events. Patient denies any pain at the lower extremities. She is unsure if the rashes have changed. Review of Systems Review of Systems: All systems reviewed & are unremarkable except as noted in HPI and below (Subjective) Exam Const: General: comfortable and no acute distress Other: Obese. A&O x3. Eyes: Pupils: Equal, round and reactive pupils present Neck: Neck: supple Resp: Effort & Inspection: normal respiratory effort Auscultation: clear to auscultation bilaterally Cardio: Rate: regular rate Rhythm: regular rhythm GI: GI Palp: Yes Soft to palpation and No Tenderness to palpation present (GI) Extrem: General: edema (Pulses 2+ throughout. Trace edema.) Other: Flaky erythema at the toes bilaterally. Erythema of the medial aspect of distal lower extremities nontender to palpation. Warm to touch. No overt edema. Objective Data Vital Signs Vital Signs: Vital Signs - 24 hr 06/10/23 14:00 06/10/23 20:13 06/10/23 21:54 Temperature 97.6 F 97.6 F Pulse Rate 64 64 64 Respiratory Rate 18 18 Blood Pressure 124/62 154/99 H Pulse Oximetry 98 98 Oxygen Delivery 06/10/23 20:00 06/11/23 06:00 06/11/23 09:20 Temperature 97.6 F Pulse Rate 66 70 Respiratory Rate 16 Blood Pressure 119/43 L Pulse Oximetry 99 Oxygen Delivery Room Air Intake/Output Intake/Output: Intake & Output 06/08/23 06/09/23 06/10/23 06/11/23 23:59 23:59 23:59 23:59 Intake Total 550 1250 970 Balance 550 1250 970 Meds/Results Medications: Active Medications Generic Name Dose Route Start Last Admin Trade Name Freq PRN Reason Stop Dose Admin Apixaban 5 mg 06/09/23 21:00 06/11/23 09:20 Apixaban 5 Mg Tablet PO 5 mg Q12HR S
[2023-06-11 12:00] LABS: Glucose Point of Care 117 mg/dl (65-105)
[2023-06-11] MEDS: BETAMETHASONE/CLOTRIMAZOLE CR 15 GM TUBE 1 APPLIC TOPICAL ×2 (12:25→22:40)
--- NOTE | 2023-06-11 14:29 | PC.NURSE ---
On 06/11/23, the student, [Vikas Liao], provided care and completed [facility] documentation on this patient. I have reviewed the student's documentation and agree with the findings.
[2023-06-11] MEDS: ROSUVASTATIN 10 MG TABLET PO (22:00)
[2023-06-11] MEDS: DOFETILIDE 250 MCG 1 EACH PO (22:03)
[2023-06-11] MEDS: VANCOMYCIN 1,500 MG/NS 500 ML 1,500 MG/500 ML BAG 250 MG IVPB (23:29)
[2023-06-12] VITALS (10 sets, daily range): BP systolic 132–188; BP diastolic 57–78; PULSE 56–93; RESP 16–20; TEMP 36.1–36.6; O2SAT 98–100
[2023-06-12 06:14] LABS: Basophils Absolute Auto 0.1 K/mm3 (0.0-0.1); Basophils Percent Auto 0.8 % (0.2-1.2); Eosinophils Absolute Auto 0.3 K/mm3 (0-0.3); Eosinophils Percent Auto 4.3 % (0-4.4); Hematocrit 37.9 % (37.0-47.0); Hemoglobin 11.9 g/dL (12.0-15.0); Immature Granulocyte Absolute 0.04 K/mm3 (0.00-0.031); Immature Granulocyte Percent A 0.6 % (0-0.5); Lymphocytes Absolute Auto 0.69 K/mm3 (0.9-3.2); Lymphocytes Percent Auto 9.7 % (18.3-44.2); Mean Corpuscular HGB Conc 31.4 g/dl (32-36); Mean Corpuscular Hemoglobin 30.7 pg (26-34); Mean Corpuscular Volume 97.7 fl (80-100); Mean Platelet Volume 9.7 fl (7.4-10.4); Monocytes Absolute Auto 0.7 K/mm3 (0.1-0.6); Monocytes Percent Auto 9.7 % (2.6-8.5); Neutrophils Absolute Auto 5.4 K/mm3 (1.3-6.7); Neutrophils Percent Auto 74.9 % (45.5-73.1); Platelet Count Result 235 k/mm3 (150-375); Red Blood Count 3.88 M/mm3 (4.2-5.4); Red Cell Distribution Width 13.8 % (11.5-14.5); White Blood Count 7.2 K/mm3 (4.5-10.0)
[2023-06-12 06:30] LABS: Estimated CRCL calculation 65 ml/min; Estimated Glomerular Filt Rate > 60
[2023-06-12] MEDS: APIXABAN 5 MG TABLET PO ×2 (09:02→21:30)
[2023-06-12] MEDS: PANTOPRAZOLE 40 MG TABLET PO ×2 (09:02→21:30)
[2023-06-12] MEDS: CALCIUM CARBONATE (OSCAL) 500 MG TABLET PO (09:02)
[2023-06-12] MEDS: EMPAGLIFLOZIN 25 MG TABLET BY MOUTH (09:03)
[2023-06-12] MEDS: MICONAZOLE NITRATE 2% CREAM 30 GM TUBE 1 APPLIC TOPICAL ×2 (09:05→21:31)
[2023-06-12] MEDS: LETROZOLE (*CHEMO) 2.5 MG TABLET PO (09:06)
[2023-06-12] MEDS: carvediloL 3.125 MG TABLET PO ×2 (09:13→21:30)
[2023-06-12] MEDS: SACUBITRIL/VALSARTAN 49-51 MG TABLET 1 TABLET PO ×2 (09:13→21:30)
[2023-06-12] MEDS: SPIRONOLACTONE 25 MG TABLET PO (09:13)
[2023-06-12] MEDS: DOFETILIDE 250 MCG 1 EACH PO ×2 (09:15→21:30)
[2023-06-12] MEDS: BETAMETHASONE/CLOTRIMAZOLE CR 15 GM TUBE 1 APPLIC TOPICAL ×2 (09:15→21:31)
[2023-06-12] MEDS: CHOLECALCIFEROL 1,000 UNITS TABLET 5000 UNITS PO (09:20)
--- NOTE | 2023-06-12 10:57 | P.CDI_ITS ---
Unknown at the moment CDI Query Clarification Request Please clarify if there is a cause and effect relationship between cellulitis and diabetes mellitus, if known. * There is a relationship between cellulitis and diabetes mellitus. * There is not a relationship between cellulitis and diabetes mellitus. * Unknown if there is a relationship between cellulitis and diabetes mellitus.
--- NOTE | 2023-06-12 10:57 | WPDCDIQUERY2 ---
CDI Query Clarification Request Please clarify if there is a cause and effect relationship between cellulitis and diabetes mellitus, if known. There is a relationship between cellulitis and diabetes mellitus. There is not a relationship between cellulitis and diabetes mellitus. Unknown if there is a relationship between cellulitis and diabetes mellitus.
--- NOTE | 2023-06-12 13:52 | PM.IMPN ---
Progress Note: A&P Assessment and Plan (1) Cellulitis of both lower extremities: Code(s): L03.115 - Cellulitis of right lower limb; L03.116 - Cellulitis of left lower limb Status: Acute Plan A pleasant 78-year-old white female with past medical history combined diastolic systolic heart failure, atrial fibrillation on Eliquis, [id number]-texjvzosc diabetes mellitus, chronic venous insufficiency, GERD, HTN, PANDA on CPAP, obesity. She presents with complaints of lower extremity redness swelling and tenderness over several days. She was receiving cephalexin in the outpatient setting but it did not improve her symptoms. Admitted on 06/09/2023 #Bilateral lower extremity cellulitis -patient reports that is not improved compared to 06/09/2023. On exam it is not tender or warm but the patient is adamant it pulse states and becomes very tender and hot. She does not appear to have sepsis or be toxic. Continue to monitor this and continue vancomycin for now while considering that this could be related to her CHF. Pending blood cultures -June 11: The patient does not have many classic characteristics of cellulitis. As well the rashes are bilateral and argue against cellulitis. We can continue vancomycin for now. Blood cultures negative to date. She had the 1st episode many years ago after a pedicure. The rash is resolved after use of a cream and she did not receive antibiotics. She reports this is identical. She is nontoxic nonseptic. Start betamethasone clotrimazole cream and re-evaluate. She does have some tinea pedis. June 12, 2023 -lower extremity erythema a bit more warm today with decreased on the right side but increased on the left side. Unsure the effectiveness of the betamethasone clotrimazole cream. Increasing the pathogen coverage by adding cefepime to the existing vancomycin. Blood culture still no growth today. Ordered bilateral lower extremity CT scan with contrast to evaluate for complicated infection. #Combined diastolic systolic heart failure -appears compensated. -continue home medications. Coreg, Jardiance, Entresto, spironolactone. Restart furosemide on 06/12/2023, patient complaining of feet swelling. #[id number]-xuvozcbjv diabetes mellitus -continue Accu-Cheks and insulin sliding scale #Hypertension -controlled. Continue home medications #Paroxysmal AFib on Eliquis -currently normal sinus rhythm. Continue Eliquis FEN: Saline lock IV. Heart healthy diabetic diet. GI prophylaxis: Not indicated DVT prophylaxis: Continue home Eliquis Lines: Peripheral IV Code Status: Full code Dispo: Stable Subjective Date/time seen: 06/12/23 13:52 Interval history: No acute overnight events. She feels her feet are a little bit more swollen than usual because she has not received her furosemide. She thinks the redness is spreading a bit and hot. He denies fever or chills. Review of Systems Review of Systems: All systems reviewed & are unremarkable except as noted in HPI and below (Subjective) Exam Const: General: comfortable and no acute distress Other: Obese. A&O x3. Eyes: Pupils: Equal, round and reactive pupils present Neck: Neck: supple Resp: Effort & Inspection: normal respiratory effort Auscultation: clear to auscultation bilaterally Cardio: Rate: regular rate Rhythm: regular rhythm GI: GI Palp: Yes Soft to palpation and No Tenderness to palpation present (GI) Extrem: General: edema (Pulses 2+ throughout. Trace edema.) Other: Flaky erythema at the toes bilaterally. Erythema of the medial aspect of distal lower extremities nontender to palpation. Warm to touch. Trace pedal edema without associated erythema or tenderness. Objective Data Vital Signs Vital Signs: Vital Signs - 24 hr 06/11/23 14:00 06/11/23 20:20 06/11/23 22:02 Temperature 97.6 F 98.0 F Pulse Rate 70 58 L 60 Respiratory Rate 18 18 Blood Pressure Pulse Oximetry 98 100
[2023-06-12] MEDS: FUROSEMIDE 40 MG TABLET PO (17:16)
[2023-06-12] MEDS: CEFEPIME 2 GM/NS 50 ML 2 GM/50 ML BAG IVPB ×2 (17:17→22:02)
[2023-06-12] MEDS: VANCOMYCIN 1,500 MG/NS 500 ML 1,500 MG/500 ML BAG 250 MG IVPB (17:56)
[2023-06-12] MEDS: ROSUVASTATIN 10 MG TABLET PO (21:30)
[2023-06-12] MEDS: WATER FOR IRRIGATION, STERILE 1,000 ML BOTTLE 1000 ML (21:39)
[2023-06-13] VITALS (8 sets, daily range): BP systolic 110–147; BP diastolic 40–47; PULSE 58–65; RESP 18–20; TEMP 36.4–36.9; O2SAT 97–100
[2023-06-13] MEDS: CEFEPIME 2 GM/NS 50 ML 2 GM/50 ML BAG IVPB ×3 (05:50→21:41)
[2023-06-13] MEDS: FUROSEMIDE 40 MG TABLET PO (08:06)
[2023-06-13] MEDS: SPIRONOLACTONE 25 MG TABLET PO (09:19)
[2023-06-13] MEDS: carvediloL 3.125 MG TABLET PO ×2 (09:19→21:42)
[2023-06-13] MEDS: CHOLECALCIFEROL 1,000 UNITS TABLET 5000 UNITS PO (09:19)
[2023-06-13] MEDS: SACUBITRIL/VALSARTAN 49-51 MG TABLET 1 TABLET PO ×2 (09:19→21:42)
[2023-06-13] MEDS: CALCIUM CARBONATE (OSCAL) 500 MG TABLET PO (09:19)
[2023-06-13] MEDS: PANTOPRAZOLE 40 MG TABLET PO ×2 (09:20→21:42)
[2023-06-13] MEDS: LETROZOLE (*CHEMO) 2.5 MG TABLET PO (09:20)
[2023-06-13] MEDS: APIXABAN 5 MG TABLET PO ×2 (09:20→21:42)
[2023-06-13] MEDS: EMPAGLIFLOZIN 25 MG TABLET BY MOUTH (09:20)
[2023-06-13] MEDS: MICONAZOLE NITRATE 2% CREAM 30 GM TUBE 1 APPLIC TOPICAL ×2 (09:21→21:43)
[2023-06-13] MEDS: BETAMETHASONE/CLOTRIMAZOLE CR 15 GM TUBE 1 APPLIC TOPICAL ×2 (09:21→21:43)
[2023-06-13] MEDS: DOFETILIDE 250 MCG 1 EACH PO ×2 (09:21→22:18)
[2023-06-13] MEDS: VANCOMYCIN 1,500 MG/NS 500 ML 1,500 MG/500 ML BAG 250 MG IVPB (12:48)
--- NOTE | 2023-06-13 13:12 | PM.IMPN ---
Progress Note: A&P Assessment and Plan (1) Cellulitis of both lower extremities: Code(s): L03.115 - Cellulitis of right lower limb; L03.116 - Cellulitis of left lower limb Status: Acute Plan A pleasant 78-year-old white female with past medical history combined diastolic systolic heart failure, atrial fibrillation on Eliquis, [id number] diabetes mellitus, chronic venous insufficiency, GERD, HTN, PANDA on CPAP, obesity. She presents with complaints of lower extremity redness swelling and tenderness over several days. She was receiving cephalexin in the outpatient setting but it did not improve her symptoms. Admitted on 06/09/2023 #Bilateral lower extremity cellulitis -patient reports that is not improved compared to 06/09/2023. On exam it is not tender or warm but the patient is adamant it pulse states and becomes very tender and hot. She does not appear to have sepsis or be toxic. Continue to monitor this and continue vancomycin for now while considering that this could be related to her CHF. Pending blood cultures -June 11: The patient does not have many classic characteristics of cellulitis. As well the rashes are bilateral and argue against cellulitis. We can continue vancomycin for now. Blood cultures negative to date. She had the 1st episode many years ago after a pedicure. The rash is resolved after use of a cream and she did not receive antibiotics. She reports this is identical. She is nontoxic nonseptic. Start betamethasone clotrimazole cream and re-evaluate. She does have some tinea pedis. June 12, 2023 -lower extremity erythema a bit more warm today with decreased on the right side but increased on the left side. Unsure the effectiveness of the betamethasone clotrimazole cream. Increasing the pathogen coverage by adding cefepime to the existing vancomycin. Blood culture still no growth today. Ordered bilateral lower extremity CT scan with contrast to evaluate for complicated infection. June 13, 2023 -after the addition of cefepime the erythema is starting to improve. Continue the current management. #Combined diastolic systolic heart failure -appears compensated. -continue home medications. Coreg, Jardiance, Entresto, spironolactone. Restart furosemide on 06/12/2023 #[id number]-[id number] diabetes mellitus -continue Accu-Cheks and insulin sliding scale #Hypertension -controlled. Continue home medications #Paroxysmal AFib on Eliquis -currently normal sinus rhythm. Continue Eliquis FEN: Saline lock IV. Heart healthy diabetic diet. GI prophylaxis: Not indicated DVT prophylaxis: Continue home Eliquis Lines: Peripheral IV Code Status: Full code Dispo: Stable Subjective Date/time seen: 06/13/23 13:12 Interval history: No acute overnight events. She reports improved redness and swelling finally. She denies fever or chest pain Review of Systems Review of Systems: All systems reviewed & are unremarkable except as noted in HPI and below (Subjective) Exam Const: General: comfortable and no acute distress Other: Obese. A&O x3. Eyes: Pupils: Equal, round and reactive pupils present Neck: Neck: supple Resp: Effort & Inspection: normal respiratory effort Auscultation: clear to auscultation bilaterally Cardio: Rate: regular rate Rhythm: regular rhythm GI: GI Palp: Yes Soft to palpation and No Tenderness to palpation present (GI) Extrem: General: edema (Pulses 2+ throughout. Trace edema.) Other: Erythema improved approximately 10% Objective Data Vital Signs Vital Signs: Vital Signs - 24 hr 06/12/23 14:00 06/12/23 19:30 06/12/23 21:30 Temperature 97.0 F L 97.9 F Pulse Rate 56 L 65 65 Respiratory Rate 16 20 Blood Pressure 150/72 H 140/72 Pulse Oximetry 100 100 Oxygen Delivery 06/12/23 22:35 06/13/23 03:25 06/13/23 05:12 Temperature 97.6 F Pulse Rate 61 58 L 58 L Respiratory Rate 18 Blood Pressure 110/4
[2023-06-13] MEDS: ROSUVASTATIN 10 MG TABLET PO (21:42)
[2023-06-14 04:40] VITALS: BP 122/44; PULSE 61; RESP 20; TEMP 36.6; O2SAT 99
[2023-06-14 05:51] LABS: Basophils Percent Auto 0.6 % (0.2-1.2); Eosinophils Absolute Auto 0.3 K/mm3 (0-0.3); Eosinophils Percent Auto 4.1 % (0-4.4); Hematocrit 34.1 % (37.0-47.0); Hemoglobin 10.8 g/dL (12.0-15.0); Immature Granulocyte Absolute 0.07 K/mm3 (0.00-0.031); Lymphocytes Absolute Auto 0.66 K/mm3 (0.9-3.2); Lymphocytes Percent Auto 9.8 % (18.3-44.2); Mean Corpuscular HGB Conc 31.7 g/dl (32-36); Mean Corpuscular Hemoglobin 31.1 pg (26-34); Mean Corpuscular Volume 98.3 fl (80-100); Mean Platelet Volume 9.9 fl (7.4-10.4); Monocytes Absolute Auto 0.7 K/mm3 (0.1-0.6); Monocytes Percent Auto 10.5 % (2.6-8.5); Platelet Count Result 225 k/mm3 (150-375); Red Blood Count 3.47 M/mm3 (4.2-5.4); Red Cell Distribution Width 13.9 % (11.5-14.5); White Blood Count 6.8 K/mm3 (4.5-10.0)
[2023-06-14] MEDS: CEFEPIME 2 GM/NS 50 ML 2 GM/50 ML BAG IVPB ×2 (05:55→15:04)
[2023-06-14 06:17] LABS: Anion Gap 4 mmol/L (8-16); Blood Urea Nitrogen 26 mg/dL (7-17); Calcium 8.9 mg/dL (8.4-10.2); Carbon Dioxide 23 mmol/L (22-30); Chloride 111 mmol/L (98-107); Estimated CRCL calculation 58 ml/min; Estimated Glomerular Filt Rate > 60; Glucose 113 mg/dL (65-110); Potassium 3.9 mmol/L (3.4-5.0); Sodium 138 mmol/L (137-145)
[2023-06-14 06:34] LABS: Vancomycin Trough 16.3 ug/mL (10.0-20.0)
[2023-06-14 08:20] VITALS: PULSE 66
[2023-06-14] MEDS: EMPAGLIFLOZIN 25 MG TABLET BY MOUTH (08:20)
[2023-06-14] MEDS: FUROSEMIDE 40 MG TABLET PO (08:20)
[2023-06-14] MEDS: carvediloL 3.125 MG TABLET PO (08:20)
[2023-06-14] MEDS: SPIRONOLACTONE 25 MG TABLET PO (08:20)
[2023-06-14] MEDS: APIXABAN 5 MG TABLET PO (08:20)
[2023-06-14] MEDS: PANTOPRAZOLE 40 MG TABLET PO (08:20)
[2023-06-14] MEDS: CHOLECALCIFEROL 1,000 UNITS TABLET 5000 UNITS PO (08:20)
[2023-06-14] MEDS: LETROZOLE (*CHEMO) 2.5 MG TABLET PO (08:20)
[2023-06-14] MEDS: CALCIUM CARBONATE (OSCAL) 500 MG TABLET PO (08:20)
[2023-06-14] MEDS: SACUBITRIL/VALSARTAN 49-51 MG TABLET 1 TABLET PO (08:20)
[2023-06-14] MEDS: BETAMETHASONE/CLOTRIMAZOLE CR 15 GM TUBE 1 APPLIC TOPICAL (08:21)
[2023-06-14] MEDS: DOFETILIDE 250 MCG 1 EACH PO (08:21)
[2023-06-14] MEDS: MICONAZOLE NITRATE 2% CREAM 30 GM TUBE 1 APPLIC TOPICAL (08:21)
--- NOTE | 2023-06-14 12:27 | PM.IMPN ---
Progress Note: A&P Assessment and Plan (1) Cellulitis of both lower extremities: Code(s): L03.115 - Cellulitis of right lower limb; L03.116 - Cellulitis of left lower limb Status: Acute Plan A pleasant 78-year-old white female with past medical history combined diastolic systolic heart failure, atrial fibrillation on Eliquis, borderline diabetes, chronic venous insufficiency, GERD, HTN, PANDA on CPAP, obesity. She presents with complaints of lower extremity redness swelling and tenderness over several days. She was receiving cephalexin in the outpatient setting but it did not improve her symptoms. Admitted on 06/09/2023 #Bilateral lower extremity cellulitis -patient reports that is not improved compared to 06/09/2023. On exam it is not tender or warm but the patient is adamant it pulse states and becomes very tender and hot. She does not appear to have sepsis or be toxic. Continue to monitor this and continue vancomycin for now while considering that this could be related to her CHF. Pending blood cultures -June 11: The patient does not have many classic characteristics of cellulitis. As well the rashes are bilateral and argue against cellulitis. We can continue vancomycin for now. Blood cultures negative to date. She had the 1st episode many years ago after a pedicure. The rash is resolved after use of a cream and she did not receive antibiotics. She reports this is identical. She is nontoxic nonseptic. Start betamethasone clotrimazole cream and re-evaluate. She does have some tinea pedis. June 12, 2023 -lower extremity erythema a bit more warm today with decreased on the right side but increased on the left side. Unsure the effectiveness of the betamethasone clotrimazole cream. Increasing the pathogen coverage by adding cefepime to the existing vancomycin. Blood culture still no growth today. Ordered bilateral lower extremity CT scan with contrast to evaluate for complicated infection. June 13, 2023 -after the addition of cefepime the erythema is starting to improve. Continue the current management. June 14 She appears completely nontoxic nonseptic bilateral extremity erythema seems to be related to stasis and edema more so. There has been no improvement with the addition of cefepime. Pending Doppler ultrasounds #Combined diastolic systolic heart failure -appears compensated. -continue home medications. Coreg, Jardiance, Entresto, spironolactone. Restart furosemide on 06/12/2023 # borderline diabetes -continue Accu-Cheks and insulin sliding scale -at the request of the patient have consulted dietitian for lifestyle management and borderline diabetes management. #Hypertension -controlled. Continue home medications #Paroxysmal AFib on Eliquis -currently normal sinus rhythm. Continue Eliquis FEN: Saline lock IV. Heart healthy diabetic diet. GI prophylaxis: Not indicated DVT prophylaxis: Continue home Eliquis Lines: Peripheral IV Code Status: Full code Dispo: Stable Subjective Date/time seen: 06/14/23 12:27 Interval history: No acute overnight events. Patient did not believe her rashes change all. She otherwise denies fever chills or any other symptoms. Review of Systems Review of Systems: All systems reviewed & are unremarkable except as noted in HPI and below (Subjective) Exam Const: General: comfortable and no acute distress Other: Obese. A&O x3. Eyes: Pupils: Equal, round and reactive pupils present Neck: Neck: supple Resp: Effort & Inspection: normal respiratory effort Auscultation: clear to auscultation bilaterally Cardio: Rate: regular rate Rhythm: regular rhythm GI: GI Palp: Yes Soft to palpation and No Tenderness to palpation present (GI) Extrem: General: edema (Pulses 2+ throughout. Trace edema.) Other: Erythema improved approximately 10% Objective Data Vital Signs Vital Signs: Vital Signs - 24 hr 06/13/23 14:00 0
[2023-06-14] MEDS: VANCOMYCIN 1,500 MG/NS 500 ML 1,500 MG/500 ML BAG 250 MG IVPB (13:07)
[2023-06-14 14:00] VITALS: BP 141/70; PULSE 62; RESP 20; O2SAT 100
--- NOTE | 2023-06-14 17:20 | PM.DS ---
DS: Admitting Diagnosis Discharge Date June 14, 2023 Admitting Diagnosis Swelling of legs and redness DS: Discharge Diagnosis Discharge Diagnosis (1) Tinea pedis: Code(s): B35.3 - Tinea pedis Status: Acute (2) Stasis dermatitis of both legs: Code(s): I87.2 - Venous insufficiency (chronic) (peripheral) Status: Acute (3) Combined systolic and diastolic cardiac dysfunction: Code(s): I51.89 - Other ill-defined heart diseases Status: Acute (4) Obesity: Code(s): E66.9 - Obesity, unspecified Status: Acute DS: Summary Hospital Course Hospital Course: This is a very pleasant 78-year-old white female with a past medical history combined diastolic systolic heart failure, atrial fibrillation on Eliquis, borderline diabetes, chronic stasis dermatitis, GERD, hypertension, PANDA on CPAP, obesity, arthritis. She presented with redness over her bilateral lower extremities which was not resolving with outpatient cephalexin. Patient is stable for discharge home on 06/14/2023. Physical exam findings indicative of chronic stasis dermatitis and tinea pedis. We went over the disease process of these extensively. [id number] Sofia on the phone and present in the room as well. She will be discharged on triamcinolone cream for 2 weeks. She is also prescribed econazole for tinea pedis. She has a medicare nurse and she agrees to follow-up within 2 weeks. Educated on lifestyle modification including weight loss with diet changes and exercise and learning disabilities resource teacher consult. She has also been educated on using compression stockings or velcro compression. Elevate legs while sleeping or sitting for long periods of time. The patient was in understanding of this and amenable to the plan. Advised she is at risk for cellulitis and to return to the ER or notify her PCP if that is the case including symptoms of worsening swelling or redness and throbbing pain as well as feeling feverish or observing abscess ulcer or lesion. Patient was full code during her admission. Time Spent with Patient Time attestation: Total time spent providing and/or coordinating discharge services: Exam Const: General: comfortable and no acute distress Other: Obese. A&O x3. Eyes: Pupils: Equal, round and reactive pupils present Neck: Neck: supple Resp: Effort & Inspection: normal respiratory effort Auscultation: clear to auscultation bilaterally Cardio: Rate: regular rate Rhythm: regular rhythm GI: GI Palp: Yes Soft to palpation and No Tenderness to palpation present (GI) Extrem: General: edema (Pulses 2+ throughout. Trace edema.) Other: Pulses 2+ throughout. Trace lower extremity edema. Chronic stasis dermatitis and stasis changes/lipodermatosclerosis DS: Data Data Completed and Pending Labs on day of discharge: Labs from last 24 hours 06/14/23 05:18 WBC 6.8 RBC 3.47 L Hgb 10.8 L Hct 34.1 L MCV 98.3 MCH 31.1 MCHC 31.7 L RDW 13.9 Plt Count 225 MPV 9.9 Immature Gran % (Auto) 1.0 H Neut % (Auto) 74.0 H Lymph % (Auto) 9.8 L [place] % (Auto) 10.5 H Eos % (Auto) 4.1 Baso % (Auto) 0.6 Lymph # (Auto) 0.66 L [place] # (Auto) 0.7 H Eos # (Auto) 0.3 Baso # (Auto) 0.0 Abs Immat Gran (auto) 0.07 H Absolute Neuts (auto) 5.0 Absolute Nucleated RBC 0.0 Nucleated RBC % 0.0 Sodium 138 Potassium 3.9 Chloride 111 H Carbon Dioxide 23 Anion Gap 4 L BUN 26 H Creatinine 0.90 Estim Creat Clear Calc 58 Estimated GFR > 60 Glucose 113 H Calcium 8.9 Vancomycin Trough 16.3 Preliminary micro results at discharge 06/09/23 13:14 Blood Culture - Preliminary Blood 06/09/23 13:14 Blood Culture - Preliminary Blood Discharge Plan Discharge Attending physician on discharge: Bonny Hebert Discharging Clinician: Bonny Hebert Patient Disposition: Home, Self-Care Activity: september shower Diet: heart healthy Discharge Instructions:
== END 2023-06-14 18:20 | disposition home or self-care (01) | DRG 300 ==
LOC: ANHED 13:33 → ANH3MEDSUR 16:22 → ANH2MED 16:53
PROVIDERS: Admitting Provider Internal Medicine; Emergency Provider Emergency Medicine; PCP Physician Assistant Medical; Visit Provider General Practice
DX: I87.2 Venous insufficiency (chronic) (peripheral) (principal); I50.42 Chronic combined systolic (congestive) and diastolic (congestive) heart failure; E66.9 Obesity, unspecified; Z68.39 Body mass index [BMI] 39.0-39.9, adult; B35.3 Tinea pedis; E11.9 Type 2 diabetes mellitus without complications; I48.0 Paroxysmal atrial fibrillation; I11.0 Hypertensive heart disease with heart failure; G47.33 Obstructive sleep apnea (adult) (pediatric); E78.5 Hyperlipidemia, unspecified; K21.9 Gastro-esophageal reflux disease without esophagitis; M81.0 Age-related osteoporosis without current pathological fracture; Z96.652 Presence of left artificial knee joint; Z85.3 Personal history of malignant neoplasm of breast; Z79.01 Long term (current) use of anticoagulants
CPT/HCPCS: 36415; 36569; 73701; 80048; 80053; 80202; 82565; 82948; 83605; 83735; 85025; 85652; 86140; 87040; 96365; 96366; 96367; 99285; A9270; C1751; J0692; J3370; Q9967